=== PATIENT | male | born 1960 ===

== ENCOUNTER 2019-07-22 10:47 | Inpatient (IN) | payer OTHER ==
[~2019-07-22] VITALS: Ht 188 cm; Wt 108.9 kg
[2019-07-22] MEDS ORDERED: LISINOPRIL5 MG PO (13:33)
[2019-07-22] MEDS ORDERED: TOPROL XL25 M1 PO (13:33)
== END 2019-07-30 16:40 | disposition home or self-care (01) | DRG 331 ==
LOC: O/R 07-23 10:15 → SURH 07-27 06:20 → SURG 07-27 15:19 → SURH 07-27 15:30
PROVIDERS: ADMIT Colon & Rectal Surgery
PROC: 0DJD8ZZ Inspection of Lower Intestinal Tract, Via Natural or Artificial Opening Endoscopic (ICD-10-PCS; 2019-07-27)
PROC: 0DTN4ZZ Resection of Sigmoid Colon, Percutaneous Endoscopic Approach (ICD-10-PCS; principal; 2019-07-27 07:00)
DX: K57.32 Diverticulitis of large intestine without perforation or abscess without bleeding (principal); K63.89 Other specified diseases of intestine; I11.9 Hypertensive heart disease without heart failure

== ENCOUNTER 2020-08-11 07:35 | Day surgery (SDC) | payer OTHER ==
[~2020-08-11 07:35] MED LIST: LISINOPRIL5 MG PO; TOPROL XL25 M1 PO
== END 2020-08-11 13:55 | disposition home or self-care (01) ==
LOC: AMB-ENDOS 07:35
PROVIDERS: ATTEND Colon & Rectal Surgery
DX: D12.3 Benign neoplasm of transverse colon (principal); K64.2 Third degree hemorrhoids; Z20.828 Contact with and (suspected) exposure to other viral communicable diseases

== ENCOUNTER 2022-04-15 12:40 | Outpatient (CLI) | payer OTHER | END 2022-04-15 12:48 | disposition home or self-care (01) | LOC: RAD 12:40 | PROVIDERS: ATTEND Orthopaedic Surgery | DX: M79.672 Pain in left foot (principal) ==

== ENCOUNTER → 2022-04-19 08:48 | Outpatient (CLI) | payer OTHER | END | disposition home or self-care (01) | LOC: LAB 08:48 | PROVIDERS: ATTEND Orthopaedic Surgery | DX: E55.9 Vitamin D deficiency, unspecified (principal); E56.1 Deficiency of vitamin K; M85.9 Disorder of bone density and structure, unspecified ==

== ENCOUNTER 2022-04-25 08:54 | Outpatient (CLI) | payer OTHER | END 2022-04-25 09:02 | disposition home or self-care (01) | LOC: RAD 08:54 | PROVIDERS: ATTEND Orthopaedic Surgery | DX: M79.672 Pain in left foot (principal); M25.572 Pain in left ankle and joints of left foot ==